=== PATIENT | female | born 1995 | race Caucasian/White ===

== ENCOUNTER 2016-10-28 12:45 | Inpatient (IN) | payer MEDICAID ==
[2016-10-28] MEDS ORDERED: MORPHINE SULFATE 10 MG/ML SYR IM ONE (13:30)
[2016-10-30] MEDS ORDERED: ONDANSETRON HCL 4 MG/2 ML VIAL IV PRN ×2 (11:35→20:26)
[2016-10-30] MEDS ORDERED: FENTANYL 100 MCG/2 ML VIAL IV PRN (11:35)
[2016-10-30] MEDS ORDERED: FENTANYL 100 MCG/2 ML VIAL IV ONE (11:35)
[2016-10-30] MEDS ORDERED: HOME MEDICATION LIST NEEDED 1 EA EACH MC ONE (11:35)
[2016-10-30] MEDS ORDERED: PENICILLIN G POTASSIUM 5 MMU in NORMAL SALINE 100 ML IV ONE (11:35)
[2016-10-30] MEDS ORDERED: MISOPROSTOL 200 MCG TABLET PO PRN ×4 (11:35→20:26)
[2016-10-30] MEDS ORDERED: LIDOCAINE HCL/PF 1% 30 ML VIAL SUBCUT PRN (11:35)
[2016-10-30] MEDS ORDERED: PENICILLIN G POTASSIUM 5 MMU VIAL ONE (11:54)
[2016-10-30] MEDS ORDERED: NORMAL SALINE MINI-BAG+ 100 ML IV ONE (11:55)
[2016-10-30 11:57] LABS: HEMOGLOBIN 13.9 g/dL (12.0-16.0)
[2016-10-30] MEDS ORDERED: OXYTOCIN/NORMAL SALINE 30 UNIT/500 ML BAG IV SCH ×2 (12:00→20:26)
[2016-10-30] MEDS ORDERED: LACTATED RINGERS 1,000 ML IV SCH (12:00)
[2016-10-30 12:05] LABS: BASOPHIL# 0.1 X 10^3uL (0.0-0.1); BASOPHILS 0.5 % (0.0-2.0); HEMATOCRIT 40.3 % (36.0-48.0); LYMPHOCYTES 8.7 % (20.0-40.0); LYMPHOCYTES# 1.4 X 10^3uL (0.8-3.8); MEAN CELL VOLUME 90.6 fL (80.0-100.0); MEAN CORPUS. HGB CONCENTRATION 34.4 g/dL (32.0-36.0); MEAN CORPUSCULAR HEMOGLOBIN 31.2 pg (29.0-35.0); MEAN PLATELET VOLUME 10.4 fL (7.4-10.4); MONOCYTES 4.1 % (2.0-10.0); MONOCYTES# 0.6 X 10^3uL (0.2-1.0); NEUTROPHILS# 13.7 X 10^3uL (2.6-6.7); PLATELET COUNT 180 X 10^3uL (130-440); RED BLOOD COUNT 4.45 X 10^6uL (4.20-6.10); RED CELL DISTRIBUTION WIDTH 12.7 % (11.5-14.5); WHITE BLOOD COUNT 15.8 X 10^3uL (3.9-10.7)
[2016-10-30 12:18] LABS: NEUTROPHILS 86.7 % (54.0-75.0)
[2016-10-30] MEDS ORDERED: ROPIVACAINE HCL 0.2% 100 ML ONE (12:57)
[2016-10-30] MEDS ORDERED: PHENYLEPHRINE HCL 10,000 MCG/ML VIAL ONE (12:57)
[2016-10-30] MEDS ORDERED: BUPIVACAINE HCL/PF 0.5% 30 ML VIAL ONE (13:21)
[2016-10-30] MEDS ORDERED: NORMAL SALINE FLUSH 20 ML ONE (13:21)
[2016-10-30 13:52] LABS: ABO GROUP TYPE A; ANTIBODY SCREEN NEGATIVE; RH TYPE NEGATIVE
[2016-10-30] MEDS ORDERED: METOCLOPRAMIDE HCL 10 MG/2 ML VIAL IV PRN (14:14)
[2016-10-30] MEDS ORDERED: EPHEDrine SULFATE 50 MG/ML VIAL IV PRN (14:14)
[2016-10-30] MEDS ORDERED: PHENYLEPHRINE HCL 10,000 MCG/ML VIAL IV PRN (14:14)
[2016-10-30] MEDS ORDERED: NALBUPHINE HCL 10 MG/ML AMP IV PRN (14:14)
--- NOTE | 2016-10-30 15:14 | PROGRESS NOTE:Antepartum ---
Assessment and Plan - Date of Encounter Date of Encounter: 10/30/16 (1) Group B Streptococcus carrier, +RV culture, currently Status: Acute Assessment and plan: Now in active labor at term. Penicillin prophylaxis begun. Current Visit: No - Time Spent With Patient Total time spent with greater than 50% in coordination of care (as documented) at patient's floor/unit and/or counseling patient: ARCHITECTURAL DESIGNER: Antepartum PN Subj - Subjective Interval history: Presents with regular and painful contractions after 2 days of prodromal labor. GBS carrier but no other complications. Initially 5 cm by RN exam on admission. Penicillin given and epidural placed per patient request. Patient reports: pain well controlled, no nausea Antepartum ROS: contractions, movement normal, no vaginal bleeding, no loss of fluid, no headache, no shortness of breath ARCHITECTURAL DESIGNER: Antepartum PN Obj Exam - Latest Vital Signs and I&O Latest Vital Signs/I&O: Vital Signs Temp 36.3 C L 10/30/16 13:55 Pulse 96 H 10/30/16 14:24 Resp 18 10/30/16 14:24 BP 120/71 10/30/16 14:24 Pulse Ox 99 10/30/16 14:12 Intake & Output 10/29/16 10/30/16 10/30/16 17:59 05:59 17:59 Intake Total 2100 Output Total 250 Balance 1850 Intake: IV 2100 Lr 1000 ml Bag 1,000 ml @ 2000 999 mls/hr IV CONT CARLIN Rx#:[id number] Sodium Chloride 100 ml 100 Mini-Bag Plus 100 ml UD IV .STK-MED ONE Rx#: [id number] Output: Urine 250 Straight 250 Other: Urine Appearance Clear Urine Color Yellow Straight Yellow Voiding Method Toilet - Exam Heart Monitor: category I Heart Rhythm: Present: regular Extremities: Absent: tenderness Abdomen: Present: soft Cervical Dilatation Degree: 8 Cervical Effacement Percentage: 100 Station: 0 Additional Comments: OP presentation, amniotomy reveals clear fluid. - Lab Labs: Laboratory Last Values WBC 15.8 X 10^3uL (3.9-10.7) H 10/30/16 11:45 RBC 4.45 X 10^6uL (4.20-6.10) 10/30/16 11:45 Hgb 13.9 g/dL (12.0-16.0) 10/30/16 11:45 Hct 40.3 % (36.0-48.0) 10/30/16 11:45 MCV 90.6 fL (80.0-100.0) 10/30/16 11:45 MCH 31.2 pg (29.0-35.0) 10/30/16 11:45 MCHC 34.4 g/dL (32.0-36.0) 10/30/16 11:45 RDW 12.7 % (11.5-14.5) 10/30/16 11:45 Plt Count 180 X 10^3uL (130-440) 10/30/16 11:45 MPV 10.4 fL (7.4-10.4) 10/30/16 11:45 Neutrophils % 86.7 % (54.0-75.0) H 10/30/16 11:45 Lymphocytes % 8.7 % (20.0-40.0) L 10/30/16 11:45 Eosinophils % 0.0 % (0.0-6.0) 10/30/16 11:45 Basophils % 0.5 % (0.0-2.0) 10/30/16 11:45 Neutrophils # 13.7 X 10^3uL (2.6-6.7) H 10/30/16 11:45 Lymphocytes # 1.4 X 10^3uL (0.8-3.8) 10/30/16 11:45 Monocytes 4.1 % (2.0-10.0) 10/30/16 11:45 Monocytes # 0.6 X 10^3uL (0.2-1.0) 10/30/16 11:45 Eosinophils # 0.0 X 10^3uL (0.0-0.4) 10/30/16 11:45 Basophils # 0.1 X 10^3uL (0.0-0.1) 10/30/16 11:45 ABO Group Type a 10/30/16 11:45 Rh Factor Negative 10/30/16 11:45 Antibody Screen Negative 10/30/16 11:45
[2016-10-30] MEDS: PENICILLIN G POTASSIUM 2.5 MMU in NORMAL SALINE 100 ML IV SCH (15:55)
[2016-10-30 16:32] LABS: URINE MUCUS NONE SEEN (Up to 25%); URINE RBC NONE SEEN (0-5/hpf); URINE SQUAMOUS EPITHELIAL CELL NONE SEEN (<= 15/hpf); URINE WBC NONE SEEN (0-4/hpf)
[2016-10-30 16:51] LABS: URINE APPEARANCE CLEAR; URINE BACTERIA NONE SEEN (<10/hpf); URINE BILIRUBIN NEGATIVE (NEGATIVE); URINE BLOOD 10 Ery/uL (1+) (NEGATIVE); URINE COLOR YELLOW; URINE GLUCOSE NORMAL (NEGATIVE); URINE KETONE 50mg/dL (2+) (NEGATIVE); URINE LEUKOCYTE ESTERASE NEGATIVE (NEGATIVE); URINE NITRITE NEGATIVE (NEGATIVE); URINE PH 5.5 (5-7); URINE PROTEIN NEGATIVE (NEG - TRACE); URINE SPECIFIC GRAVITY < or = 1.005 (0.001-1.035); URINE UROBILINOGEN 0.2mg/dL (Normal) (NEG-1mg/dL)
[2016-10-30] MEDS ORDERED: ACETAMINOPHEN 325 MG TABLET PO PRN ×2 (17:08→20:26)
[2016-10-30] MEDS ORDERED: CALCIUM CARBONATE 300 MG TAB.CHEW PO PRN ×2 (17:08→20:26)
[2016-10-30] MEDS ORDERED: CALCIUM CARBONATE 300 MG TAB.CHEW PO ONE (17:16)
--- NOTE | 2016-10-30 18:14 | PROCEDURE NOTE: Vaginal Del ---
OB Procedure Vaginal Delivery - Vaginal Delivery Estimated Gestational Age (weeks): 40 (07/25) Delivery Presentation: vertex Delivery Position: OA (manual rotation from ROT to OA to facilitate more effective pushing) Heart Monitor: category I Intrapartum Events: febrile >100.3 (single episode, no associated tachycardia, resolved with Tylenol) Delivery Induction: none Delivery Augmentation: rupture of membranes Amniotic Fluid: clear Delivery Monitor: external FHT, external uterine Delivery Method: Shoulders: without difficulty Placenta delivered: yes Delivery Placenta: spontaneous Delivery Cord: 3 Vessels Nuchal Cord # of Loops: 1 (tight, reduced over anterior shoulder) Cord clamped: Yes (Delayed) Cord blood obtained: Yes Episiotomy: midline Delivery Laceration: 3rd degree (partial, not complete tear, repaired with figure of eight 0 Chromic sutures) Suture Type for Laceration Repair: 3.0 Vicryl (for episiotomy) at 1 minute: 4 at 5 minutes: 8 at 10 minutes: 10 Gender: Male [place] Weight: 3.646 kg Estimate Blood Loss Delivery: 300cc Anesthesia: Epidural Delivery Complications: Present: none
[2016-10-30] MEDS ORDERED: BENZOCAINE/LANOLIN/ALOE 1 SPRAY BOTTLE TOPICAL PRN (20:26)
[2016-10-30] MEDS ORDERED: ACETAMINOPHEN/CODEINE 300/30MG 1 TAB TABLET PO PRN (20:26)
[2016-10-30] MEDS ORDERED: LANOLIN CREAM 1 APP/7 GM TUBE TOPICAL PRN (20:26)
[2016-10-30] MEDS ORDERED: DIPHENHYDRAMINE 25 MG CAPSULE PO PRN (20:26)
[2016-10-30] MEDS: IBUPROFEN 600 MG TABLET PO PRN (23:14)
[2016-10-30] MEDS: DOCUSATE SODIUM 100 MG CAPSULE PO SCH (23:14)
[2016-10-31] MEDS: PENICILLIN G POTASSIUM 2.5 MMU in NORMAL SALINE 100 ML IV SCH (01:27)
[2016-10-31] MEDS: IBUPROFEN 600 MG TABLET PO PRN ×3 (04:56→17:51)
[2016-10-31 07:13] LABS: HEMATOCRIT 32.7 % (36.0-48.0); HEMOGLOBIN 11.1 g/dL (12.0-16.0)
--- NOTE | 2016-10-31 09:51 | PROGRESS NOTE:Vaginal Delivery ---
Assessment and Plan - Date of Encounter Date of Encounter: 10/31/16 (1) care following vaginal delivery Status: Acute Assessment and plan: Doing well, plan routine care. 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 Post- Day: 1 Patient reports: voiding normally, pain well controlled, ambulating normally Donie: doing well, nursing well NUMERICAL CONTROL MACHINE TOOL OPERATOR: Vag Del PN Obj Exam - Latest Vital Signs and I&O Latest Vital Signs/I&O: Vital Signs Temp 36.4 C L 10/31/16 07:45 Pulse 84 10/31/16 07:45 Resp 18 10/31/16 07:45 BP 89/54 10/31/16 07:45 Pulse Ox 97 10/31/16 07:45 Intake & Output 10/30/16 10/31/16 10/31/16 17:59 05:59 17:59 Intake Total 2100 2400 Output Total 1100 2200 400 Balance 1000 200 -400 Intake: IV 2100 1400 Pfizerpen 2.5 Mmu In 100 Sodium Chloride 0.9% 100 ml 100 ml @ 100 mls/hr IV Q4H CARLIN Rx#:[id number] Pitocin/Ns 30 Unit/500 ml 500 30 unit IV CONT CARLIN Rx#: [id number] Lr 1000 ml Bag 1,000 ml @ 2000 800 999 mls/hr IV CONT CARLIN Rx#:[id number] Sodium Chloride 100 ml 100 Mini-Bag Plus 100 ml UD IV .STK-MED ONE Rx#: [id number] Oral 1000 Output: Urine 1100 2200 400 Straight 1100 Other: Urine Appearance Clear Clear Clear Urine Color Yellow Light Leah Yellow Straight Yellow Stool Size Small Stool Characteristics Soft Formed Voiding Method Toilet Toilet Toilet # Voids 1 1 - Exam Heart Rhythm: Present: regular Abdomen: Present: soft. Absent: distention Uterus: Present: firm, non tender - Lab Labs: Laboratory Last Values WBC 15.8 X 10^3uL (3.9-10.7) H 10/30/16 11:45 RBC 4.45 X 10^6uL (4.20-6.10) 10/30/16 11:45 Hgb 11.1 g/dL (12.0-16.0) L 10/31/16 07:00 Hct 32.7 % (36.0-48.0) L 10/31/16 07:00 MCV 90.6 fL (80.0-100.0) 10/30/16 11:45 MCH 31.2 pg (29.0-35.0) 10/30/16 11:45 MCHC 34.4 g/dL (32.0-36.0) 10/30/16 11:45 RDW 12.7 % (11.5-14.5) 10/30/16 11:45 Plt Count 180 X 10^3uL (130-440) 10/30/16 11:45 MPV 10.4 fL (7.4-10.4) 10/30/16 11:45 Neutrophils % 86.7 % (54.0-75.0) H 10/30/16 11:45 Lymphocytes % 8.7 % (20.0-40.0) L 10/30/16 11:45 Eosinophils % 0.0 % (0.0-6.0) 10/30/16 11:45 Basophils % 0.5 % (0.0-2.0) 10/30/16 11:45 Neutrophils # 13.7 X 10^3uL (2.6-6.7) H 10/30/16 11:45 Lymphocytes # 1.4 X 10^3uL (0.8-3.8) 10/30/16 11:45 Monocytes 4.1 % (2.0-10.0) 10/30/16 11:45 Monocytes # 0.6 X 10^3uL (0.2-1.0) 10/30/16 11:45 Eosinophils # 0.0 X 10^3uL (0.0-0.4) 10/30/16 11:45 Basophils # 0.1 X 10^3uL (0.0-0.1) 10/30/16 11:45 Urine Color Yellow 10/30/16 16:26 Urine Appearance Clear 10/30/16 16:26 Urine pH 5.5 (5-7) 10/30/16 16:26 Ur Specific [place] < or = 1.005 (0.001-1.035) 10/30/16 16:26 Urine Protein Negative (NEG - TRACE) 10/30/16 16:26 Urine Ketones 50mg/dl (2+) (NEGATIVE) A 10/30/16 16:26 Urine Blood 10 jess/ul (1+) (NEGATIVE) A 10/30/16 16:26 Urine Nitrate Negative (NEGATIVE) 10/30/16 16:26 Urine Bilirubin Negative (NEGATIVE) 10/30/16 16:26 Urine Urobilinogen 0.2mg/dl (normal) (NEG-1mg/dL) 10/30/16 16:26 Ur Leukocyte Esterase Negative (NEGATIVE) 10/30/16 16:26 Urine RBC None seen (0-5/hpf) 10/30/16 16:26 Urine WBC None seen (0-4/hpf) 10/30/16 16:26 Ur Squamous Epith Cells None seen (<= 15/hpf) 10/30/16 16:26 Urine Bacteria None seen (<10/hpf) 10/30/16 16:26 Urine Mucus None seen (Up to 25%) 10/30/16 16:26 Urine Glucose Normal (NEGATIVE) 10/30/16 16:26 ABO Group Type a 10/30/16 11:45 Rh Factor Negative 10/30/16 11:45 Antibody Screen Negative 10/30/16 11:45
[2016-10-31] MEDS: DOCUSATE SODIUM 100 MG CAPSULE PO SCH ×2 (12:08→21:26)
[2016-10-31] MEDS ORDERED: RHO(D) IMMUNE GLOBULIN 1,500 UNIT DISP.SYRIN IM ONE ×2 (16:53→18:17)
[2016-10-31 17:31] VITALS: O2SAT 96
[2016-11-01] MEDS: IBUPROFEN 600 MG TABLET PO PRN (04:11)
--- NOTE | 2016-11-01 09:00 | DC SUMMARY: Obstetrical/GYN ---
Discharge Summary: Surg/OB Provider: Date of Admission: 10/30/16 Admitting Provider: ENRICO BULLOCK MD Attending Provider: ENRICO BULLOCK MD Discharging Provider: ENRICO BULLOCK MD Primary Care Provider: Discharge Date: 11/01/16 - Diagnosis (1) care following vaginal delivery Status: Acute Hospital Course: Ms. ASHLEY is a 21 year old G1 female who presented with regular and painful contractions after 2 days of prodromal labor. GBS carrier but no other complications. Initially 5 cm by RN exam on admission. Penicillin given and epidural placed per patient request. Amniotomy revealed clear fluid. She progressed well. She had an obstetrically assisted vaginal delivery over a second degree episiotomy with partial third degree extension. Her course was unremarkable and she is discharged home in good condition. Discharge - Patient/Caregiver Discharge Instructions Activity Level: Pelvic rest Diet: Regular Additional Instructions: Enrico Bullock M.D. INSTRUCTIONS 1. Please make an appointment to see me for a checkup two weeks and six weeks after delivery. Call the clinic to make these appointments. Do not hesitate to call me, or my nurse, with any questions or problems regarding gynecological care or breast feeding. 2. It would be best for you to restrict your activities to caring for yourself and your baby for the first week. As you feel up to it, you may increase your activity. Use your own judgment, listen to your body, and take frequent short rests as you become tired. 3. If needed you will receive a prescription for pain pills upon hospital discharge. Generally ibuprofen is adequate after vaginal delivery for discomfort. If needed, take as directed. If necessary, you may drive a car a short distance after 1 -2 weeks. Use good judgment. Do not drive a car or operate machinery as long as you are taking narcotic pain medication. 4. You may climb stairs but try to make the trip worthwhile. Do not walk up and down excessively. 5. If you are breast feeding, wear a well supporting bra day and night (a maternity or sports bra). Use the lanolin or tayo cream provided to you after each feeding. It does not need to be washed off before you feed your baby. Do not use soap on your nipples; wash them with clear water. Wash your hands before you handle your baby or your breasts. Do not allow your nipples to become caked with milk or to be constantly wet with milk that leaks between feedings. 6. To help prevent complications with : a)Ensure good position and latch b)Ensure feeding on demand c)Empty breasts fully d)Use hand expression to help relieve fullness e)Expose breast engorgement to warm water by shower or basin f)Call if unrelieved or if you have questions Lilly Joshi : Shreya Jordan, ___[phone] Scarlet Traore, ___ 7. If you are not breast feeding, wear a well supporting bra day and night for at least two full weeks. Should your breasts become full, apply ice packs and avoid stimulation to your breasts. This full feeling may last for 2-3 days and then gradually subside. 8. Start your Kegel exercises at home. Walking should start immediately but limit your normal exercise program until after your six-week check up. 9. Bleeding may be heavier after activity. If your bleeding does not slow down after resting, please notify me immediately. 10. Sitting in three inches of warm water with Epsom salt for 15 minutes, three times per day will help ease the discomfort from your episiotomy. The episiotomy will be healed in about three weeks. The stitches will dissolve. Small superficial skin separations should not cause anxiety, as they heal quickly. 11. Vaginal discharge is usually bright red for two to four days following delivery, and then becomes pinkish or dark red in four to ten days. The vaginal flow will gradually subside. You may have intermittent episodes of increased bleeding and may pass a few clots. The bleeding should not be heavier than a normal period for more than a few days. Use only mini or maxi pads. Vaginal discharge may last four to eight weeks. Call me if bleeding seems excessive. No tampons, douching or intercourse until your bleeding stops. 12. Eat a well-balanced diet. You should drink 6-8 glasses of fluid per day and eat the same kind of diet you were on during your . Fresh fruits, green leafy vegetables, bran cereals and whole wheat breads should be eaten to prevent constipation. If necessary, stool softeners may be obtained at the pharmacy without a prescription. Use as directed. Milk of Magnesia may be used for constipation. 13. Continue taking your vitamins and iron for one month. If you are breast feeding, continue taking your vitamins as long as you breast feed. If you are breast feeding be very cautious about taking medications not prescribed by me. Always inform your physician that you are breast feeding before he or she prescribes any medication for you. 14. Report any vomiting or fever above 100.5 degrees. It is not necessary to take your temperature daily, but if you feel like you have a fever, take your temperature and call me if necessary. 15. I can be reached through the hospital charge nurse ([phone]) or the hospital mva operator ([phone]). If no one answers, please leave your name and number and expect a return phone call in 30 minutes. Enrico Bullock M.D. Follow up: ENRICO BULLOCK MD [ACTIVE (Staff Physician)] - 2 Weeks Overall discharge status: stable Print Language: ICELANDIC Home Medications: Ibuprofen [Motrin] 2 - 3 tab PO Q4H PRN #30 tablet PRN Reason: pain Disposition: HOME, SELF-CARE Obstetrical/TECHNICAL SUPPORT MANAGER Discharge Exam - Latest Vital Signs and I&O Latest Vital Signs/I&O: Vital Signs Temp 36.5 C 11/01/16 04:00 Pulse 72 11/01/16 04:00 Resp 16 11/01/16 04:00 BP 90/61 11/01/16 04:00 Pulse Ox 96 10/31/16 19:55 Intake & Output 10/31/16 11/01/16 11/01/16 17:59 05:59 17:59 Output Total 400 Balance -400 Output: Urine 400 Other: Urine Appearance Clear Urine Color Yellow Voiding Method Toilet Toilet # Voids 1 - Exam Heart Rhythm: Present: regular Extremities: Absent: tenderness Abdomen: Present: soft. Absent: distention Uterus: Present: firm, non tender Discharge Summary Data - Medication History Medication History: Home Medications Vit/Fe Fumarate/FA [ Rx 1] 1 tab PO DAILY 10/30/16 Inpatient Medications 10/30/16 20:26 Acetaminophen [Tylenol] 650 mg PO Q6H PRN Acetaminophen/Codeine 300/30Mg [Tylenol with Codeine #3] 1 - 2 tab PO Q3H PRN Benzocaine/Lanolin/Aloe [Dermoplast [place]] 1 spray TOPICAL PRN PRN Calcium Carbonate [Tums X-Str] 600 mg PO Q4H PRN Diphenhydramine [Benadryl] 50 mg PO HS PRN Docusate Sodium [Colace] 100 mg PO Q12H Ibuprofen [Motrin] 600 mg PO Q6H PRN Lanolin Cream [Lansinoh] 1 jv TOPICAL PRN PRN Misoprostol [Cytotec] 600 mcg PO ONCE PRN Misoprostol [Cytotec] 800 mcg PO ONCE PRN Oxytocin/Normal Saline [Pitocin/Ns 30 Unit/500 ml] 30 unit IV CONT Procedures and tests throughout hospitalization: Completed Lab Orders 10/30/16 11:45 ABO GROUP [HEM] Routine ANTIBODY SCREEN [HEM] Routine CBC AUTO DIF, MDIF/RMOR IF IND [HEM] Stat RH TYPE [HEM] Routine 10/30/16 16:26 UA W/ MICRO -CULTURE IF IND [URINE] Routine 10/31/16 07:00 SCREEN [SEND] Routine HGB & HCT PANEL [HEM] AMDRAW Pending Orders 10/30/16 11:35 Admit: Inpatient Routine VTE Prophylaxis Scoring/ Ordering Routine Insert Cunningham Catheter PRN Resuscitation Status Routine 10/30/16 14:14 Epidural Type . 10/30/16 20:26 May shower TOLERATED Post Assessment PER PROTOCOL Vital Signs Q8H Acetaminophen [Tylenol] 650 mg PO Q6H PRN Acetaminophen/Codeine 300/30Mg [Tylenol with Codeine #3] 1 - 2 tab PO Q3H PRN Benzocaine/Lanolin/Aloe [Dermoplast [place]] 1 spray TOPICAL PRN PRN Calcium Carbonate [Tums X-Str] 600 mg PO Q4H PRN Diphenhydramine [Benadryl] 50 mg PO HS PRN Docusate Sodium [Colace] 100 mg PO Q12H Ibuprofen [Motrin] 600 mg PO Q6H PRN Lanolin Cream [Lansinoh] 1 jv TOPICAL PRN PRN Misoprostol [Cytotec] 600 mcg PO ONCE PRN Misoprostol [Cytotec] 800 mcg PO ONCE PRN Oxytocin/Normal Saline [Pitocin/Ns 30 Unit/500 ml] 30 unit IV CONT 10/30/16 Dinner Regular [DIET] 10/31/16 Dinner Special Meal (NLC) Labs on day of discharge: Labs from last 24 hours 10/31/16 07:00 Screen Negative
[2016-11-01 09:12] VITALS: BP 107/56; PULSE 65; RESP 18; TEMP 97
== END 2016-11-01 09:30 | disposition home or self-care (01) | DRG 774 ==
LOC: NLCPRO 12:45 → UNDOADMIN 10-30 11:22 → NLC 10-30 11:22
PROVIDERS: ADMIT Obstetrics & Gynecology; ATTEND Obstetrics & Gynecology
PROC: 0DQR0ZZ Repair Anal Sphincter, Open Approach (ICD-10-PCS; principal; 2016-10-30)
PROC: 0W8NXZZ Division of Female Perineum, External Approach (ICD-10-PCS; principal; 2016-10-30)
PROC: 10S0XZZ Reposition Products of Conception, External Approach (ICD-10-PCS; principal; 2016-10-30)
PROC: 10E0XZZ Delivery of Products of Conception, External Approach (ICD-10-PCS; principal; 2016-10-30)
DX: O70.21 Third degree perineal laceration during delivery, IIIa (principal); O47.1 False labor at or after 37 completed weeks of gestation; O99.824 Streptococcus B carrier state complicating childbirth; O75.2 Pyrexia during labor, not elsewhere classified; Z3A.40 40 weeks gestation of pregnancy; Z37.0 Single live birth
CPT/HCPCS: 36415; 81001; 85014; 85018; 85025; 85461; 86850; 86900; 86901; J2370; J2790; J2795; J7120